=== PATIENT | female | born 1960 ===

== ENCOUNTER 2017-03-31 07:10 | Day surgery (SDC) | payer OTHER ==
[2017-03-31 07:31] VITALS: BMI 23.8
[2017-03-31] MEDS ORDERED: Propofol 10 mg/ml Inj (20 ML) ONE (11:48)
[2017-03-31] MEDS ORDERED: Lactated Ringer's 1,000 ML IV ONE (11:49)
[2017-03-31] MEDS ORDERED: Lidocaine 2% Inj (20ml) ONE (11:50)
--- NOTE | 2017-03-31 11:54 | CP.SDSHP ---
Same Day Surgery H & P - History Proposed Procedure: EGD and colonoscopy - Previous Medical/Surgical History Misc: Anemia, Other Comments: thrombocytopenia - Allergies Allergies: Allergies No Known Allergies Allergy (Unverified 09/26/14 19:51) - Current Medications Current Medications: as entered - Physical Exam Vital Signs: Vital Signs 03/31/17 03/31/17 03/31/17 07:20 10:44 10:59 Temperature 97.8 F 97.4 F L 97.4 F L Pulse Rate 83 75 94 H Respiratory 20 20 20 Rate Blood Pressure 105/68 150/90 108/70 O2 Sat by Pulse 97 Oximetry 03/31/17 11:15 Temperature 99.5 F Pulse Rate 102 H Respiratory 16 Rate Blood Pressure 151/70 H O2 Sat by Pulse 100 Oximetry Mental Status: Alert & Oriented x3 Heart: WNL Lungs: WNL GI: WNL - {Optional Preform as Required} Abdomen: WNL - Impression Impression: Proceed with EGD and colonoscopy Pt. Evaluated Today:Candidate for Anesthesia & Procedure: Yes - Date & Time Date: 03/31/17 Time: 11:55 Short Stay Discharge - Short Stay Discharge Admitting Diagnosis/Reason for Visit: PORTAL HTN/THROMBOCYTOPENIA/SPLENOMEGALY Disposition: HOME/ ROUTINE
[2017-03-31] MEDS ORDERED: ePHEDrine 50 mg/ml Inj ONE (12:13)
[2017-03-31 13:01] VITALS: TEMP 97.1
[2017-03-31 14:55] VITALS: BP 126/68; PULSE 85; RESP 18; O2SAT 99
== END 2017-03-31 13:40 | disposition home or self-care (01) ==
LOC: C.INFCTR 07:10 → C.ENDO 07:10 → C.INFCTR 13:40
PROVIDERS: ATTEND Internal Medicine Gastroenterology
DX: I85.00 Esophageal varices without bleeding (principal); I86.4 Gastric varices; K29.70 Gastritis, unspecified, without bleeding; K31.7 Polyp of stomach and duodenum; Z12.11 Encounter for screening for malignant neoplasm of colon; K76.6 Portal hypertension; K63.5 Polyp of colon; K62.89 Other specified diseases of anus and rectum; D69.6 Thrombocytopenia, unspecified; R16.1 Splenomegaly, not elsewhere classified; D64.9 Anemia, unspecified